=== PATIENT | female | born 1995 | race Hispanic/Latino ===

== ENCOUNTER 2021-04-08 10:03 | Emergency (ER) | payer OTHER ==
[~2021-04-08] VITALS: Ht 157.5 cm; Wt 65.8 kg
[2021-04-08 10:04] VITALS: BP 127/73
[2021-04-08] MEDS ORDERED: KETOROLAC 60MG 2ML VIAL IM ONE (12:25)
[2021-04-08] MEDS ORDERED: CYCLOBENZAPRINE 5MG TABLET PO ONE (12:25)
[2021-04-08] MEDS ORDERED: LIDO5DIS41 TOP (13:27)
[2021-04-08] MEDS ORDERED: CYCL5TAB PO (13:27)
== END 2021-04-08 13:47 | disposition home or self-care (01) ==
LOC: M ED 10:03
DX: M25.511 Pain in right shoulder (principal); M54.2 Cervicalgia
CPT/HCPCS: 36415; 84702; 99282; J1885

== ENCOUNTER 2023-05-24 21:09 | Outpatient (CLI) | payer OTHER ==
[~2023-05-24] VITALS: Ht 160 cm; Wt 80.0 kg
[~2023-05-24 21:09] MED LIST: CYCL5TAB PO; LIDO5DIS41 TOP
[2023-05-24 21:32] VITALS: BP 134/79
[2023-05-24] MEDS ORDERED: FLUCONAZOLE 50MG TABLET PO SCH (23:00)
== END 2023-05-24 23:20 | disposition home or self-care (01) ==
LOC: M LDO 21:09
PROVIDERS: ATTEND Obstetrics & Gynecology
DX: O23.593 Infection of other part of genital tract in pregnancy, third trimester (principal); B37.9 Candidiasis, unspecified; Z3A.34 34 weeks gestation of pregnancy; O34.219 Maternal care for unspecified type scar from previous cesarean delivery
CPT/HCPCS: 59025; G0463

== ENCOUNTER 2023-06-21 20:01 | Outpatient (CLI) | payer OTHER ==
[~2023-06-21] VITALS: Ht 160 cm; Wt 84.3 kg
[2023-06-21 20:14] VITALS: BP 139/81
== END 2023-06-21 21:30 | disposition home or self-care (01) ==
LOC: M LDO 20:01
PROVIDERS: ATTEND Obstetrics & Gynecology
DX: O47.1 False labor at or after 37 completed weeks of gestation (principal); Z3A.38 38 weeks gestation of pregnancy
CPT/HCPCS: 59025; 76815; G0463

== ENCOUNTER → 2024-06-11 | Outpatient (REF) | payer OTHER ==
[~2024-06-11] MED LIST changes: -CYCL5TAB PO; +CYCL5TAB4 PO
== END ==
LOC: M LAB REF 11:09
PROVIDERS: ATTEND Student in an Organized Health Care Education/Training Program
DX: R30.0 Dysuria (principal)